=== PATIENT | female | born 1970 | race Two or more races ===

== ENCOUNTER 2022-12-11 10:39 | Outpatient (CLI) | payer OTHER | END 2022-12-11 10:46 | disposition home or self-care (01) | LOC: RAD 10:39 | PROVIDERS: ATTEND Orthopaedic Surgery | DX: S82.64XA Nondisplaced fracture of lateral malleolus of right fibula, initial encounter for closed fracture (principal) ==

== ENCOUNTER 2024-12-21 06:37 | Day surgery (SDC) | payer OTHER ==
[2024-12-17 10:02] VITALS: BP 126/75
[2024-12-17 10:43] LABS: BASO % 0.6 % (0.1-1.2); EOS # 0.05 (0.04-0.54); EOS % 1.0 % (0.7-7.0); LYMPH # 2.79 (1.18-3.74); LYMPH % 57.1 % (19.3-53.1); MEAN PLATELET VOLUME 10.50 fl (9.4-12.4); MONO # 0.38 (0.24-0.82); MONO % 7.8 % (4.7-12.5); NEUT # 1.63 (1.56-6.13); NEUT % 33.3 % (34.0-71.1); RED CELL DISTRIBUTION WIDTH 12.9 % (11.6-14.4)
[2024-12-17 10:50] LABS: URINE APPEARANCE Clear; URINE BILIRRUBIN Negative (NEGATIVE); URINE BLOOD Negative; URINE COLOR Yellow; URINE GLUCOSE Negative (NEGATIVE); URINE KETONE Negative (NEGATIVE); URINE LEUKOCYTE Small; URINE NITRATE Negative; URINE PROTEIN Negative (NEGATIVE); URINE UROBILINOGEN 1.0 E.U./dl
[2024-12-17 10:54] LABS: URINE BACTERIA 139.1 uL (0.0-1933); URINE EPITHELIAL CELLS 18.5 uL (0.0-38.8); URINE RBC 7.3 uL (0.0-20.8); URINE WBC 24.1 uL (0.0-23.2)
[2024-12-17 11:00] LABS: URINE CAST 0.00 uL (0.0-1.40)
[2024-12-17 11:12] LABS: ALT/SGPT 33.0 U/L (12-78); AST/SGOT 20.0 U/L (15-37); BILIRUBIN TOTAL 0.36 mg/dL (0.3-1.2); BUN CREA RATIO 23.0 (7.0-25.0); CREATININE SERUM 0.7 mg/dL (0.55-1.02); GFR 87.2; GLOBULINA 3.5 G/DL (2.4-3.5); GLUCOSE FASTING 93.0 mg/dL (65-100); OSMOLALITY SERUM 284.0 MOSM/KG (275-295)
[2024-12-17 11:15] LABS: INR 1.01
[~2024-12-21] VITALS: Ht 154.9 cm; Wt 60.8 kg
[2024-12-21] MEDS ORDERED: BUPIVACAINE HCL 30 ML VIAL IJ ONE ×2 (13:15)
[2024-12-21] MEDS ORDERED: CEFAZOLIN SODIUM 1,000 MG VIAL IV ONE (13:15)
[2024-12-21] MEDS ORDERED: ONDANSETRON HCL 2 MG/ML VIAL IV ONE (14:00)
== END 2024-12-21 16:30 | disposition home or self-care (01) ==
LOC: CIR.AMB 06:37
PROVIDERS: ATTEND Orthopaedic Surgery Hand Surgery
DX: D21.11 Benign neoplasm of connective and other soft tissue of right upper limb, including shoulder (principal); R22.31 Localized swelling, mass and lump, right upper limb; S69.81XA Other specified injuries of right wrist, hand and finger(s), initial encounter